=== PATIENT | male | born 1960 | race Asian ===

== ENCOUNTER 2022-06-30 07:16 | Emergency (ER) | payer OTHER ==
[~2022-06-30] VITALS: Ht 167.6 cm; Wt 69.5 kg
[2022-06-30 07:23] VITALS: BP 146/79
== END 2022-06-30 08:14 | disposition home or self-care (01) ==
LOC: EMS 07:16
DX: L20.9 Atopic dermatitis, unspecified (principal); H61.21 Impacted cerumen, right ear
CPT/HCPCS: 99281; Z7502